=== PATIENT | male | born 1975 | race Caucasian/White ===

== ENCOUNTER 2017-12-26 08:23 | Emergency (ER) | payer MEDICAID ==
[~2017-12-26] VITALS: Ht 172.7 cm; Wt 94.8 kg
[2017-12-26 08:30] VITALS: Ht 172.7 cm; Wt 94.8 kg
[2017-12-26 09:31] VITALS: BP 124/80
== END 2017-12-26 09:31 | disposition home or self-care (01) ==
LOC: ED 08:23
DX: J02.9 Acute pharyngitis, unspecified (principal)

== ENCOUNTER 2018-08-16 22:54 | Inpatient (IN) | payer MEDICAID ==
[~2018-08-16] VITALS: Ht 170.2 cm; Wt 96.7 kg
[2018-08-16 23:15] VITALS: Ht 170.2 cm; Wt 96.7 kg
[2018-08-17] VITALS (11 sets, daily range): BP systolic 82–102; BP diastolic 36–62
[2018-08-17 00:44] LABS: BASOPHIL % 0.8 % (0-2); PLATELET COUNT 320 x10^3mcL (130-400); RED CELL DISTRIBUTION WIDTH 12.7 % (11.5-14.5)
[2018-08-17 01:01] LABS: CALCIUM 8.4 mg/dL (8.5-10.1); CARBON DIOXIDE 24.3 mmol/L (21-32); CREATININE SERUM 2.7 mg/dL (0.7-1.3); POTASSIUM SERUM 3.3 mmol/L (3.5-5.1)
[2018-08-17 01:06] LABS: ALBUMIN 3.6 g/dL (3.4-5.0); BILIRUBIN TOTAL 1.3 mg/dL (0.20-1.00); TOTAL PROTEIN, SERUM 7.4 g/dL (6.4-8.2)
[2018-08-17 03:00] LABS: MAGNESIUM 1.6 mg/dL (1.8-2.4)
[2018-08-17 03:06] LABS: T3 TOTAL 0.63 ng/mL
[2018-08-17 04:00] LABS: FREE T4 1.11 ng/dL (0.76-1.46); FREE THYROXINE INDEX 2.6 ug/dL (1.4-4.5); T4(THYROXINE) 6.9 ug/dL (4.7-13.3)
[2018-08-17 09:20] LABS: CALCIUM 7.4 mg/dL (8.5-10.1); CARBON DIOXIDE 22.2 mmol/L (21-32); CREATININE SERUM 2.2 mg/dL (0.7-1.3); POTASSIUM SERUM 4.3 mmol/L (3.5-5.1)
[2018-08-17 09:46] LABS: AMPHETAMINE QUAL UR NONE DETECTED (See below)
[2018-08-17 10:39] LABS: UA SPECIFIC GRAVITY 1.025 (1.005-1.035); microscopic required? YES; urine erythrocyte 1+ (NEGATIVE)
[2018-08-17 10:55] LABS: PLATELET COUNT 245 x10^3mcL (130-400); RED CELL DISTRIBUTION WIDTH 12.8 % (11.5-14.5)
[2018-08-17 12:52] LABS: BAND NEUTROPHIL 59 % (0-10); MONOCYTE 4 % (0-7); SEGMENTED NEUTROPHILS 28 % (37-75)
[2018-08-17 12:53] LABS: METAMYELOCTE 4 % (0-2); rbc morphology (normal/abnorm) NORMAL (NORMAL)
[2018-08-17 12:55] LABS: PLATELET MORPHOLOGY PLATELETS NORMAL
[2018-08-18 05:44] VITALS: BP 132/78
[2018-08-18 06:22] LABS: PLATELET COUNT 221 x10^3mcL (130-400); RED CELL DISTRIBUTION WIDTH 12.4 % (11.5-14.5)
[2018-08-18 06:31] LABS: CALCIUM 7.5 mg/dL (8.5-10.1); CREATININE SERUM 1.6 mg/dL (0.7-1.3); POTASSIUM SERUM 3.8 mmol/L (3.5-5.1)
[2018-08-18 07:10] LABS: CARBON DIOXIDE 22.7 mmol/L (21-32)
[2018-08-18 08:58] VITALS: BP 115/68
[2018-08-18 13:08] LABS: BAND NEUTROPHIL 47 % (0-10); MONOCYTE 2 % (0-7); SEGMENTED NEUTROPHILS 45 % (37-75)
[2018-08-18 13:09] LABS: PLATELET MORPHOLOGY PLATELETS NORMAL; rbc morphology (normal/abnorm) NORMAL (NORMAL)
[2018-08-18 17:49] VITALS: BP 113/71
[2018-08-18 20:45] VITALS: BP 112/66
[2018-08-19 05:31] VITALS: BP 114/71
[2018-08-19 06:24] LABS: CALCIUM 7.5 mg/dL (8.5-10.1); CARBON DIOXIDE 25.2 mmol/L (21-32); CHLORIDE SERUM 104 mmol/L (98-107); CREATININE SERUM 1.3 mg/dL (0.7-1.3); GFR1 > 60 mL/min; GLUCOSE SERUM 124 mg/dL (74-106); POTASSIUM SERUM 3.5 mmol/L (3.5-5.1); SODIUM SERUM 132 mmol/L (136-145)
[2018-08-19 06:48] LABS: BASOPHIL % 0.1 % (0-2); PLATELET COUNT 228 x10^3mcL (130-400); RED CELL DISTRIBUTION WIDTH 12.7 % (11.5-14.5)
[2018-08-19 08:59] VITALS: BP 111/70
[2018-08-19] MEDS ORDERED: AUGMENTIN 875-1 EACH PO (10:32)
[2018-08-19] MEDS ORDERED: BACDS PO (10:33)
[2018-08-19] MEDS ORDERED: LAC PO (10:33)
[2018-08-19] MEDS ORDERED: TYL325 PO (10:33)
[2018-08-19 13:30] VITALS: BP 111/70
== END 2018-08-19 16:10 | disposition home or self-care (01) | DRG 720 ==
LOC: ED 22:54 → MU 08-17 02:08
PROVIDERS: Emergency Medicine; Family Medicine
PROC: 0S9C3ZZ Drainage of Right Knee Joint, Percutaneous Approach (ICD-10-PCS; principal; 2018-08-17)
PROC: 0S9C3ZZ Drainage of Right Knee Joint, Percutaneous Approach (ICD-10-PCS; 2018-08-18)
DX: A41.9 Sepsis, unspecified organism (principal); N17.0 Acute kidney failure with tubular necrosis; E87.2 Acidosis; L02.415 Cutaneous abscess of right lower limb; R65.20 Severe sepsis without septic shock; L03.115 Cellulitis of right lower limb; I10 Essential (primary) hypertension; E87.6 Hypokalemia; E87.1 Hypo-osmolality and hyponatremia; E66.9 Obesity, unspecified; Z68.33 Body mass index [BMI] 33.0-33.9, adult; Z71.3 Dietary counseling and surveillance; F17.210 Nicotine dependence, cigarettes, uncomplicated
CPT/HCPCS: 83880; 84439; J1644; J1885; J2001; J2270; J2543; J3370; J7030; J7050; Q0092